=== PATIENT | male | born 1985 | race Two or more races ===

== ENCOUNTER 2016-11-15 16:46 | Emergency (ER) | payer OTHER ==
--- NOTE | ~2016-11-15 | CT101 ---
[facility] A Service of [facility] RADIOLOGY TEXT RESULTS PATIENT: CHRISTI MITCHELL LOCATION: [facility] : 89 UNIT #: [id number] AGE: [address]: Mya Gore SEX: M ORDER DR: [id number] [facility]. [place], [place] [address] [id number] MR#: [id number] Acc #: [id number] NAME: CHRISTI MITCHELL : 1985 SEX: M STUDY DATE/TIME: 11/15/2016 15:51 UNIT: [facility] ROOM: STUDY DESCRIPTION: CT Maxillofacial Area Wo Cont Attending Physician: Mya Gore P.A.-C. Ordering Physician: Mya Gore P.A.-C. MEDICAL IMAGING REPORT This report is preliminary unless electronic signature is present EXAM CT facial bones without contrast. HISTORY Right side face pain and right eye pain today. No reported injury. TECHNIQUE This CT exam was performed with one or more of the following radiation dose reduction techniques: automatic exposure control, adjustment of mA and/or kV according to patient size, and iterative reconstruction. FINDINGS CT facial bones without contrast demonstrates moderately extensive mucosal thickening in the bilateral maxillary sinuses and opacification of multiple bilateral ethmoid air cells and extensive mucosal thickening in the left sphenoid sinus and bilateral frontal sinuses. Moderate nasal septal deviation to the right. No fracture. No opaque soft tissue foreign body. IMPRESSION 1. No acute finding. 2. Extensive bilateral paranasal sinus mucosal thickening. 3. Moderate nasal septal deviation to the right. 4. No fracture. Dictated by... Roland Lara M.D. THIS IS AN ELECTRONICALLY VERIFIED REPORT Roland Lara M.D. at 11/16/2016 10:55 PM [facility] A Service of [facility] RADIOLOGY TEXT RESULTS PATIENT: CHRISTI MITCHELL LOCATION: [facility] : 89 UNIT #: [id number] AGE: [address]: Mya Gore SEX: M ORDER DR: Markie TD: 11/15/2016 17:22 JOB #: [id number] MEDICAL IMAGING REPORT Page 1 of 1 COPY
== END 2016-11-15 17:20 | disposition home or self-care (01) ==
LOC: CFTX 16:46
DX: J32.1 Chronic frontal sinusitis (principal); F17.210 Nicotine dependence, cigarettes, uncomplicated
CPT/HCPCS: 70486; 96374; 96375; 99284; J0696; J1100; J1885; J2765